=== PATIENT | female | born 1945 | race Caucasian/White ===

== ENCOUNTER 2022-01-12 11:41 | Emergency (ER) | payer MEDICARE, SELFPAY ==
[2022-01-12] VITALS (46 sets, daily range): BP systolic 115–152; BP diastolic 50–78; PULSE 80–108; RESP 10–24; TEMP 36.8–36.9; O2SAT 84–100
--- NOTE | 2022-01-12 11:45 | DI.RAD_ITS ---
Exam(s) XR CHEST 2V PA LATERAL EXAM: XR CHEST 2V PA LATERAL CLINICAL HISTORY: sob, r/o acute disease. TECHNIQUE: 2D digital imaging was performed. COMPARISON: No exams were available for comparison FINDINGS: 2 views: Heart size is normal. The mediastinum is not widened. Left lung is clear. However, there is infiltrate in the mid right lung and there is a moderate size right pleural effusion. No obvious adjacent rib destruction. No pneumothorax IMPRESSION: Moderate size right pleural effusion. Also right lung infiltrate. Close follow-up to rule out neopl asm recommended. DATA REPOSITORY: RADIATION DOSE DELIVERED:
--- NOTE | 2022-01-12 11:49 | ED.GENADUL_ITS ---
Discharge Plan Disposition Patient Disposition: HOME Condition: Improving Discharge Details Clinical Impression: Pleural effusion on right, Pneumonia, History of lung cancer Primary Care Provider: Unknown,Unknown ED Provider: Tomasa Ortega Home Meds and New Rx's Prescriptions: New amoxicillin-pot clavulanate 875-125 mg tablet 1 tab PO BID 7 Days Qty: 14 0RF doxycycline hyclate 100 mg tablet 100 mg PO BID 7 Days Qty: 14 0RF prednisone 20 mg tablet See Rx Instructions .ROUTE .COMPLEX Qty: 12 0RF Rx Instructions: Take 3 tabs daily for 2 days, then 2 tabs daily for 2 days, then 1 tab daily for 2 days Continued venlafaxine 37.5 mg capsule,extended release 24hr 37.5 mg PO DAILY Qty: 90 4RF azithromycin 250 mg tablet 250 mg PO .three times a week 0RF fluticasone furoate-vilanterol 100-25 mcg/dose blister with device 1 inh IH DAILY 0RF guaifenesin 600 mg tablet extended release 12hr 1,200 mg PO BID 0RF Centrum Silver Women 8 mg iron-400 mcg-300 mcg tablet 1 tab PO DAILY 0RF acetaminophen 500 mg tablet 500 mg PO .once daily PRN0RF ipratropium-albuterol 0.5 mg-3 mg(2.5 mg base)/3 mL solution for nebulization 3 ml IH Q6H PRN0RF duloxetine 30 mg capsule,delayed release(DR/EC) 30 mg PO BID 0RF pregabalin 200 mg capsule 400 mg PO DAILY 0RF levetiracetam 500 mg tablet 250 mg PO BID 0RF albuterol sulfate 90 mcg/actuation aerosol powdr breath activated 2 inh IH Q4H PRN (Reason: wheezing) 0RF Rx Instructions: use with spacer cbd cream 850 mg topical 0RF memantine 10 mg tablet 10 mg PO DAILY 0RF Breo Ellipta 100-25 mcg/dose blister with device INHALATION 0RF Discharge Instructions Instructions: Pleural Effusion (ED), Pneumonia (ED) Additional Instructions: Your work-up today showed evidence of a right-sided pleural effusion and pneumonia. You are being sent home with 2 antibiotics to take as directed until finished for your pneumonia The general surgeon Dr. Hutson who performed your thoracentesis today would like to follow-up with you in her office in 10 days. It is recommended that you avoid any strenuous activity or heavy lifting for the next 24 hours. You can take Tylenol and apply ice to the affected area as needed and directed for pain. Call Dr. Mcdaniel's office tomorrow to schedule a follow-up appointment for reevaluation within the next week. Return immediately to the emergency department if you develop any worsening or new concerning symptoms such as fever, worsening shortness of breath, or redness, swelling or drainage at your chest wall site. Referrals: Jennifer Hutson DO [OSTEOPATHIC DOCTOR] - Discharge Data Discharge Date/Time-TO BE ENTERED AT DEPARTURE: 01/12/22 17:51 Discharge Physician: Tomasa Ortega Medical Decision Making 76-year-old female with a history of small cell lung CA treated with chemo and radiation in 2016, COPD, dementia, anxiety, chronic pain, hypertension, fibromyalgia who presents for shortness of breath with increasing oxygen requirements. Oxygen saturation 84% on arrival on 4L on arrival. Patient appears comfortable and nontoxic at bedside. She is speaking in full sentences. She has scattered wheezing and diminished breath sounds throughout. No lower extremity edema. Differential diagnosis includes acute on chronic COPD, bronchitis, pneumonia, COVID, flu, CHF. Will place an IV, obtain screening labs, chest x-ray, fluvid and given DuoNeb, steroids and reassess. Labs and imaging reviewed. White blood cell count normal at 8. Normal electrolytes. Troponin negative. BNP 929. Lactate 2.2. Fluvid negative. Chest x-ray notes a moderate sized pleural effusion and a right lung infiltrate. As patient has had productive sputum with increased oxygen requirements and no recent hospitalizations, will treat for community-acquired pneumonia. reports that she has been on prophylactic Zithromax 3 times weekly for the past year. We will give a dose of IV Rocephin and doxycycline. Case discussed and imaging reviewed with Dr. Hutson who will perform a bedside thoracentesis. Repeat portable x-ray noted significant improvement of pleural effusion post thoracentesis. Repeat lactate downtrending to 1.6. Patient feels comfortable going home. She has remained hemodynamically stable and oxygen saturation mid to high 90s on her baseline 3 L nasal cannula. Prescriptions for Augmentin and doxycycline sent electronically to her pharmacy. Dr. Hutson would like to follow-up with patient in 10 days in the office. Usual and customary return precautions given prior to discharge. Prescription for prednisone sent electronically to patient's [facility] pharmacy on 01/13/2022. Attempted to call patient on number listed at [phone] on 01/13/22 with only a busy signal. Patient placed on care management list to inform her or her PCP that a prescription for prednisone has been sent electronically to her pharmacy. Medical Records Medical records reviewed: Yes I reviewed the patient's medical records. Imaging Data Radiologic Study: Radiologist's impression: ?XR CHEST 2V PA ? LATERAL CLINICAL HISTORY: ? sob, r/o acute disease. ? TECHNIQUE:? 2D digital imaging was performed. COMPARISON:? No exams were available for comparison FINDINGS: 2 views: Heart size is normal.? The mediastinum is not widened. Left lung is clear.? However, there is infiltrate in the mid right lung and there is a moderate size right pleural effusion.? No obvious adjacent rib destruction.? No pneumothorax IMPRESSION: Moderate size right pleural effusion.? Also right lung infiltrate.? Close follow-up to rule out neoplasm recommended. Lab Data Lab results reviewed: Yes I reviewed the patient's lab results. Labs: 01/12/22 14:50 Blood Blood Culture - Preliminary NO GROWTH 24 HOURS 01/12/22 14:09 Blood Blood Culture - Preliminary NO GROWTH 24 HOURS 01/12/22 16:15 Pleural Body Fluid Culture - Pending 01/12/22 16:15 Pleural Gram Stain - Final 01/12/22 16:15 Pleural Anaerobic Culture - Pending Laboratory Tests Range/Units 01/12/22 01/12/22 01/12/22 12:00 12:15 12:15 WBC Cancelled RBC Cancelled Hgb Cancelled Hct Cancelled MCV Cancelled MCH Cancelled MCHC Cancelled RDW Cancelled Plt Count Cancelled MPV Cancelled Immature Gran % Cancelled Neutrophils % Cancelled Band Neutrophils % Cancelled Lymphocytes % Cancelled Atypical Lymphs % Cancelled Monocytes % Cancelled Eosinophils % Cancelled Basophils % Cancelled Metamyelocytes % Cancelled Myelocytes % Cancelled Promyelocytes % Cancelled Other Cells % Cancelled Nucleated RBC % Cancelled Absolute Neutrophils Cancelled Absolute Lymphocytes Cancelled Absolute Monocytes Cancelled Absolute Eosinophils Cancelled Absolute Basophils Cancelled RBC Morphology Cancelled Polychromasia Cancelled Hypochromasia Cancelled Poikilocytosis Cancelled Basophilic Stippling Cancelled Anisocytosis Cancelled Microcytosis Cancelled Macrocytosis Cancelled Spherocytes Cancelled Tear Drop Cells Cancelled Ovalocytes Cancelled Stomatocytes Cancelled [place] Bodies Cancelled Anna Cells/Echinocytes Cancelled Acanthocytes (Spur) Cancelled Schistocytes Cancelled VBG Lactate (0.6-1.4) mmol/L Sodium (136-145) mmol/L 140 Potassium (3.5-5.1) mmol/L 3.9 Chloride (98-107) mmol/L 101 Carbon Dioxide (21.0-32.0) mmol/L 31.8 Anion Gap (3-11) mmol/L 7.2 BUN (7-18) mg/dL 12 Creatinine (0.55-1.02) mg/dL 0.6 Estimated GFR/1.73 m2 (mL/min/1.73m2) >= 60.00 Glucose (74-106) mg/dL 134 H Calcium (8.5-10.1) mg/dL 9.6 Magnesium (1.8-2.5) mg/dL 2.2 Total Bilirubin (0.2-1.0) mg/dL 0.7 AST (15-37) U/L 35 ALT (14-59) U/L 28 Alkaline Phosphatase (46-116) U/L 110 Troponin I (<or=60) ng/L < 50 NT-Pro-B Natriuret Pep (<300) pg/mL Total Protein (6.4-8.2) g/dL 7.8 Albumin (3.4-5.0) g/dL 3.4 Fluid Source Fluid Color Fluid Clarity Fluid pH Fluid WBC (0) uL Fld Polynuclear WBCs % Fluid Mononuclear Cell Fluid Other Cells Fluid Albumin (See Note) g/dL COVID-19 Source Nasopharynx SARS-CoV-2 (PCR) (Negative) Negative Influenza Type A (PCR) (Negative) Negative Influenza Type B (PCR) (Negative) Negative RSV (PCR) (Negative) Negative Path Cons Comment Range/Units 01/12/22 01/12/22 01/12/22 12:15 13:35 14:09 WBC 8.91 RBC 4.54 Hgb 13.6 Hct 43.8 MCV 97 H MCH 30.0 MCHC 31.1 L RDW 11.8 Plt Count 175 MPV 11.3 H Immature Gran % 0.3 Neutrophils % 79.1 Band Neutrophils % Lymphocytes % 10.9 Atypical Lymphs % Monocytes % 8.3 Eosinophils % 1.0 Basophils % 0.4 Metamyelocytes % Myelocytes % Promyelocytes % Other Cells % Nucleated RBC % 0.0 Absolute Neutrophils 7.04 H Absolute Lymphocytes 0.97 L Absolute Monocytes 0.74 Absolute Eosinophils 0.09 Absolute Basophils 0.04 RBC Morphology Polychromasia Hypochromasia Poikilocytosis Basophilic Stippling Anisocytosis Microcytosis Macrocytosis Spherocytes Tear Drop Cells Ovalocytes Stomatocytes [place] Bodies Anna Cells/Echinocytes Acanthocytes (Spur) Schistocytes VBG Lactate (0.6-1.4) mmol/L 2.2 H* Sodium (136-145) mmol/L Potassium (3.5-5.1) mmol/L Chloride (98-107) mmol/L Carbon Dioxide (21.0-32.0) mmol/L Anion Gap (3-11) mmol/L BUN (7-18) mg/dL Creatinine (0.55-1.02) mg/dL Estimated GFR/1.73 m2 (mL/min/1.73m2) Glucose (74-106) mg/dL Calcium (8.5-10.1) mg/dL Magnesium (1.8-2.5) mg/dL Total Bilirubin (0.2-1.0) mg/dL AST (15-37) U/L ALT (14-59) U/L Alkaline Phosphatase (46-116) U/L Troponin I (<or=60) ng/L NT-Pro-B Natriuret Pep (<300) pg/mL 929 H Total Protein (6.4-8.2) g/dL Albumin (3.4-5.0) g/dL Fluid Source Fluid Color Fluid Clarity Fluid pH Fluid WBC (0) uL Fld Polynuclear WBCs % Fluid Mononuclear Cell Fluid Other Cells Fluid Albumin (See Note) g/dL COVID-19 Source SARS-CoV-2 (PCR) (Negative) Influenza Type A (PCR) (Negative) Influenza Type B (PCR) (Negative) RSV (PCR) (Negative) Path Cons Comment Range/Units 01/12/22 01/12/22 01/12/22 16:15 16:15 16:15 WBC RBC Hgb Hct MCV MCH MCHC RDW Plt Count MPV Immature Gran % Neutrophils % Band Neutrophils % Lymphocytes % Atypical Lymphs % Monocytes % Eosinophils % Basophils % Metamyelocytes % Myelocytes % Promyelocytes % Other Cells % Nucleated RBC % Absolute Neutrophils Absolute Lymphocytes Absolute Monocytes Absolute Eosinophils Absolute Basophils RBC Morphology Polychromasia Hypochromasia Poikilocytosis Basophilic Stippling Anisocytosis Microcytosis Macrocytosis Spherocytes Tear Drop Cells Ovalocytes Stomatocytes [place] Bodies Ovid Cells/Echinocytes Acanthocytes (Spur) Schistocytes VBG Lactate (0.6-1.4) mmol/L Sodium (136-145) mmol/L Potassium (3.5-5.1) mmol/L Chloride (98-107) mmol/L Carbon Dioxide (21.0-32.0) mmol/L Anion Gap (3-11) mmol/L BUN (7-18) mg/dL Creatinine (0.55-1.02) mg/dL Estimated GFR/1.73 m2 (mL/min/1.73m2) Glucose (74-106) mg/dL Calcium (8.5-10.1) mg/dL Magnesium (1.8-2.5) mg/dL Total Bilirubin (0.2-1.0) mg/dL AST (15-37) U/L ALT (14-59) U/L Alkaline Phosphatase (46-116) U/L Troponin I (<or=60) ng/L NT-Pro-B Natriuret Pep (<300) pg/mL Total Protein (6.4-8.2) g/dL Albumin (3.4-5.0) g/dL Fluid Source Pleural Pleural Fluid Color Yellow Fluid Clarity Fluid pH 7.0 Fluid WBC (0) uL 1482 Fld Polynuclear WBCs % Cancelled 20 Fluid Mononuclear Cell Cancelled 80 Fluid Other Cells Cancelled Fluid Albumin (See Note) g/dL COVID-19 Source SARS-CoV-2 (PCR) (Negative) Influenza Type A (PCR) (Negative) Influenza Type B (PCR) (Negative) RSV (PCR) (Negative) Path Cons Comment Cancelled SEE COMMENT Range/Units 01/12/22 01/12/22 16:15 16:49 WBC RBC Hgb Hct MCV MCH MCHC RDW Plt Count MPV Immature Gran % Neutrophils % Band Neutrophils % Lymphocytes % Atypical Lymphs % Monocytes % Eosinophils % Basophils % Metamyelocytes % Myelocytes % Promyelocytes % Other Cells % Nucleated RBC % Absolute Neutrophils Absolute Lymphocytes Absolute Monocytes Absolute Eosinophils Absolute Basophils RBC Morphology Polychromasia Hypochromasia Poikilocytosis Basophilic Stippling Anisocytosis Microcytosis Macrocytosis Spherocytes Tear Drop Cells Ovalocytes Stomatocytes [place] Bodies Anna Cells/Echinocytes Acanthocytes (Spur) Schistocytes VBG Lactate (0.6-1.4) mmol/L 1.6 H Sodium (136-145) mmol/L Potassium (3.5-5.1) mmol/L Chloride (98-107) mmol/L Carbon Dioxide (21.0-32.0) mmol/L Anion Gap (3-11) mmol/L BUN (7-18) mg/dL Creatinine (0.55-1.02) mg/dL Estimated GFR/1.73 m2 (mL/min/1.73m2) Glucose (74-106) mg/dL Calcium (8.5-10.1) mg/dL Magnesium (1.8-2.5) mg/dL Total Bilirubin (0.2-1.0) mg/dL AST (15-37) U/L ALT (14-59) U/L Alkaline Phosphatase (46-116) U/L Troponin I (<or=60) ng/L NT-Pro-B Natriuret Pep (<300) pg/mL Total Protein (6.4-8.2) g/dL Albumin (3.4-5.0) g/dL Fluid Source Fluid Color Fluid Clarity Fluid pH Fluid WBC (0) uL Fld Polynuclear WBCs % Fluid Mononuclear Cell Fluid Other Cells Fluid Albumin (See Note) g/dL 2.3 COVID-19 Source SARS-CoV-2 (PCR) (Negative) Influenza Type A (PCR) (Negative) Influenza Type B (PCR) (Negative) RSV (PCR) (Negative) Path Cons Comment HPI General Mode of arrival: ambulatory . Date/Time Provider Initiated Documentation: 01/12/22 11:42 . Limitations to Documentation: no limitations . Information obtained by: patient and family . HPI Narrative: Patient is a 76-year-old female with a history of COPD, anxiety, dementia, hypertension, fibromyalgia who presents for worsening shortness of breath, cough and increasing oxygen requirements over the last several days. states that patient has been on 3 L of nasal cannula oxygen for COPD for the past 4 years. He states her baseline oxygen saturation on 3 L is mid 90s. He states with exertion over the last few days, her oxygen has decreased to the 60s on her nasal cannula oxygen so he increased her oxygen to 4 L last night. He states she does have a chronic cough and shortness of breath but states the cough has been worse than usual and productive of yellow sputum. He does endorse that patient had a fall a couple weeks ago in which she hit her head but denies any chest injury at that time but is complaining of right-sided rib pain over the last couple days. states he thought her right-sided rib pain was secondary to her increase in cough. He states she has been eating slightly less than usual but denies any fever, vomiting, diarrhea or known exposure to coronavirus. She has received a total of 3 doses of the COVID-vaccine but has not yet received her second booster. states that he called Dr. Mcdaniel's office yesterday and they advised her to come to the ER for further evaluation including a chest x-ray. Related Data Home Medications Medication Instructions Recorded Confirmed acetaminophen 500 mg tablet 500 mg PO .once daily PRN tab 02/06/20 01/12/22 albuterol sulfate 90 mcg/actuation 2 inh IH Q4H PRN 02/06/20 01/12/22 breath activated powder inhaler azithromycin 250 mg tablet 250 mg PO .three times a week tab 02/06/20 01/12/22 duloxetine 30 mg capsule,delayed 30 mg PO BID 02/06/20 01/12/22 release fluticasone furoate 100 1 inh IH DAILY 02/06/20 12/02/21 mcg-vilanterol 25 mcg/dose inhalation powder guaifenesin 600 mg tablet, 1,200 mg PO BID tab 02/06/20 01/12/22 extended release 12 hr ipratropium 0.5 mg-albuterol 3 mg 3 ml IH Q6H PRN 02/06/20 01/12/22 (2.5 mg base)/3 mL nebulization soln levetiracetam 500 mg tablet 250 mg PO BID tab 02/06/20 01/12/22 multivit with 1 tab PO DAILY 02/06/20 01/12/22 qffelcds-cjub-PW-lutein 8 mg iron-400 mcg-300 mcg tablet (Centrum Silver Women) pregabalin 200 mg capsule 400 mg PO DAILY cap 02/06/20 01/12/22 cbd cream TOPICAL 08/06/20 12/02/21 venlafaxine 37.5 mg 37.5 mg PO DAILY #90 cap 04/01/21 01/12/22 capsule,extended release 24 hr memantine 10 mg tablet 10 mg PO DAILY tab 12/02/21 01/12/22 amoxicillin 875 mg-potassium 1 tab PO BID 7 Days #14 tab 01/12/22 clavulanate 125 mg tablet doxycycline hyclate 100 mg tablet 100 mg PO BID 7 Days #14 tab 01/12/22 fluticasone furoate 100 INHALATION 01/12/22 01/12/22 mcg-vilanterol 25 mcg/dose inhalation powder (Breo Ellipta) prednisone 20 mg tablet See Rx Instructions .ROUTE 01/13/22 .COMPLEX #12 tab Previous Rx's Medication Instructions Recorded venlafaxine 37.5 mg 37.5 mg PO DAILY #90 cap 04/01/21 capsule,extended release 24 hr amoxicillin 875 mg-potassium 1 tab PO BID 7 Days #14 tab 01/12/22 clavulanate 125 mg tablet doxycycline hyclate 100 mg tablet 100 mg PO BID 7 Days #14 tab 01/12/22 prednisone 20 mg tablet See Rx Instructions .ROUTE 01/13/22 .COMPLEX #12 tab Allergies Allergy/AdvReac Type Severity Reaction Status Date / Time oxcarbazepine AdvReac wandering Verified 01/12/22 13:15 [From Oxtellar XR] General Stated Complaint: SOB ALYSSA: 3 Review of Systems All systems reviewed & are unremarkable except as noted in HPI and below Constitutional Constitutional: Reports as per HPI, Denies chills, Denies excessive sweating, Denies fatigue and Denies fever(s) Eyes Eyes: Denies blurry vision ENT Ears, Nose, Mouth, and Throat: Denies dizziness, Denies sore throat and Denies throat swelling Cardiovascular Cardiovascular: Reports chest pain and Reports dyspnea Respiratory Respiratory: Reports cough and Reports dyspnea Gastrointestinal Gastrointestinal: Denies abdominal pain, Denies diarrhea and Denies vomiting Genitourinary Genitourinary: Denies hematuria and Denies dysuria Musculoskeletal Musculoskeletal: Denies back pain and Denies numbness Integumentary/Breasts Skin/Breast: Denies lesions and Denies rash Neurologic Neurologic: Denies behavioral changes, Denies confusion, Denies dizziness, Denies localized weakness and Denies numbness Psychiatric Psychiatric: Denies behavioral changes, Denies confusion and Denies depression Endocrine Endocrine: Denies excessive sweating and Denies fatigue Hematologic/Lymphatic Hematologic/Lymphatic: Denies easy bruising and Denies lymphadenopathy Allergic/Immunologic Allergic/Immunologic: Denies throat swelling PFSH All Active Problems (Updated 01/12/22 @ 17:22 by Tomasa Ortega DO) Pleural effusion on right (Acute) Pneumonia (Acute) History of lung cancer (Acute) Pleural effusion, right (Acute) Pneumonia (Acute) Shortness of breath (Acute) Dementia (Chronic) AD vs FTLD Physician orders for life-sustaining treatment (POLST) form indicates patient wish for [id number]-[id number] status (Acute) Palliative care patient (Acute) Dobbertin Chronic pain (Chronic) Hyperlipidemia (Acute) Right hemiparesis (Acute) Anxiety (Chronic) COPD (chronic obstructive pulmonary disease) (Chronic) Small cell lung cancer (Acute) Continuous tobacco abuse (Acute) Dementia associated with other underlying disease without behavioral disturbance (Acute) Seizure disorder, secondary (Acute) focal motor Depression (Chronic) Insomnia (Acute) Gastroesophageal reflux (Chronic) Hypertension (Chronic) Fibromyalgia (Acute) Pulmonary emphysema (Acute) Chronic respiratory insufficiency (Acute) Sensory peripheral neuropathy (Acute) Small cell carcinoma of right lung (Acute) Medical History (Updated 01/12/22 @ 17:22 by Tomasa Ortega DO) Intracranial glioma Polio Surgical History H/O section H/O colonoscopy H/O tubal ligation History of bronchoscopy History of tonsillectomy Family History (Updated 02/06/20 @ 07:47 by Pattie Lake RN) Mother , age 84 Stroke Hypertension Osteoporosis Rheumatoid arthritis Father , age 94 Cancer colorectal cancer Hypertension Son No problems noted. Daughter No problems noted. Social History (Updated 02/06/20 @ 07:35 by Pattie Lake RN) Smoking/Tobacco Use Status: Current every day Tobacco Type: cigarettes Smoking packs per day: 0.5 Smoking cigarettes per day: 10.0 Smoking risk assessment performed?: Yes Alcohol Intake: current Alcohol Intake frequency: 0-2 drinks per day Household members: spouse Housing: house Number of Children: 2 number of grandchildren: 5 current occupation: retired from [employer] Pets and animals: No What is your relationship status?: Panel score (0-1 are the most socially isolated patients): 1 What type of physical activity do you participate in: walking Do you feel safe at home: Yes Do you feel safe in your relationship?: Yes Additional Social history: Spends [place] in [place]. [place] PCP Dr. Gomes of [facility]. *[place] based medical team: PCP, Pulm, Onc & Neuro (had f/u with all providers during winter). Lives with Phuc ( in 1995). Son in [place]. Daughter in [place]; 20 miles away. Hobbies: sewing, quilting, watercolor, oil color Exam Const General: cooperative and no acute distress Orientation: alert and awake HENMT Head: normal to inspection Ears: hearing grossly normal bilaterally, external ears normal and TM's normal bilaterally General nose exam: external nose normal Face and sinus: normal facial exam Mouth: oral mucosae normal Teeth and gingiva: dentition normal Throat: posterior oropharynx normal Eyes General: appearance normal, both eyes and all related structures Eyelids: eyelids normal Pupils: PERRL EOM: EOM intact bilaterally Neck Neck: normal visual inspection Lymphatic: no lymphadenopathy noted Chest Chest: normal inspection of the chest Resp Effort & Inspection: normal respiratory effort and able to speak in complete sentences Auscultation: rhonchi upper bilaterally and lower bilaterally and wheezes expiratory wheezes and inspiratory wheezes Cardio Rate: regular rate and tachycardic Rhythm: regular rhythm GI Inspection: normal to inspection Palpation: soft, not firm, no guarding, no hepatosplenomegaly, no masses and nontender Auscultation: normal bowel sounds Back/Spine/Pelvis Back: no CVA tenderness Skin General skin exam: no rashes or lesions noted Neuro General: patient alert and patient awake Cognition: normal cognition Speech: speech normal Gait: normal gait Motor: muscle tone normal throughout Sensory Exam: no sensory deficits noted Extrem General: normal to inspection, full ROM and capillary refill normal Psych Appearance: grossly normal Mental Status: mental status grossly normal Speech and Movement: speech and movement normal Affect: normal affect Thought Process: normal
--- OUTSIDE RECORDS SUMMARY | 2022-01-12 12:09 | XMS_ITS ---
:1945 Author Name Migration Care Team Providers Name Role Phone Migration Unavailable Unavailable PROBLEMS Unknown Problems ALLERGIES No Information ENCOUNTERS Encounter Location Date Diagnosis [facility] [address] [place], [place] Nov, [id number] [facility] [address] [place], [place] Nov, [address] [facility] [address] [place], [place] Nov, [address] [facility] [address] [place], [place] Aug, [id number] IMMUNIZATIONS No Known Immunizations SOCIAL HISTORY Never Assessed REASON FOR REFERRAL FUNCTIONAL STATUS PLAN OF CARE VITAL SIGNS MEDICATIONS Unknown Medications PROCEDURES No Known procedures RESULTS No Results REASON FOR VISIT Skin Check, MOHS ON LEFT MORMON, focused visit, Melanoma Check, MOHS- Lt episcopalian nod bcc, FU( pt toldneeds MOHS SX) Insurance Providers [facility] Member Patient Patient Patient Patient Patient Subscriber Subscriber Subscriber Group Insurance Plan Plan Plan Plan ID Relationship Address Phone Name Date of ID Name Date of No Type Insurance Insurance Insurance Coverage to Subscriber Address Phone Name Dates AARP [phone] AARP self JACQUES [id number] Medicare [id number] Medicare [place] Supplement [facility] Supplement [id number] MEDICARE [phone] MEDICARE self JACQUES [id number] [facility] [address] [facility] [id number]
[2022-01-12 12:49] LABS: ALT 28 U/L (14-59); AST 35 U/L (15-37); Albumin 3.4 g/dL (3.4-5.0); Alkaline Phosphatase 110 U/L (46-116); Anion Gap 7.2 mmol/L (3-11); BUN 12 mg/dL (7-18); Bilirubin, Total 0.7 mg/dL (0.2-1.0); CO2 31.8 mmol/L (21.0-32.0); CREATININE 0.6 mg/dL (0.55-1.02); Calcium 9.6 mg/dL (8.5-10.1); Chloride 101 mmol/L (98-107); Glucose 134 mg/dL (74-106); Magnesium 2.2 mg/dL (1.8-2.5); Potassium 3.9 mmol/L (3.5-5.1); Sodium 140 mmol/L (136-145); Total Protein 7.8 g/dL (6.4-8.2); Troponin I < 50 ng/L (<or=60)
[2022-01-12] MEDS: Albuterol/Ipratropium 3 ML UPD VIAL UPD (12:59)
[2022-01-12 13:05] LABS: COVID-19 PCR Negative (Negative); Influenza A PCR Negative (Negative); Influenza B PCR Negative (Negative); RSV PCR Negative (Negative)
[2022-01-12 13:06] LABS: Source Nasopharynx
[2022-01-12 13:08] LABS: NT-proBNP 929 pg/mL (<300)
[2022-01-12] MEDS: predniSONE 20 MG TAB 60 MG PO (13:26)
--- NOTE | 2022-01-12 13:29 | NUR.NOTE ---
Addendum entered by Ana Morelos RN 01/12/22 16:05: 1605. Surgeon in room for procedure. Addendum entered by Ana Morelos RN 01/12/22 14:20: 1420. 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 Original Note: Nursing Note:Patient moved to room 8 placed on woodworking machine setter, patient is on 3L NC at this time. at bedside.
[2022-01-12 13:40] LABS: Abs Immature Grans 0.03 10^3/uL (0.0-0.06); Absolute Basophil Count 0.04 10^3/uL (0.0-0.2); Absolute Eosinophil Count 0.09 10^3/uL (0.0-0.7); Absolute Lymphocyte Count 0.97 10^3/uL (1.2-3.4); Absolute Monocyte Count 0.74 10^3/uL (0.1-0.8); Absolute Neutrophil Count 7.04 10^3/uL (1.2-6.7); Basophils % 0.4; HCT 43.8 % (36.0-46.0); HGB 13.6 g/dL (11.2-15.7); Immature Grans % 0.3; Lymphocytes % 10.9; MCHC 31.1 % (32.0-36.0); MCV 97 fL (80-95); MPV 11.3 fL (8.0-11.0); Monocytes % 8.3; Neutrophils % 79.1; Platelet Count 175 10^3/uL (130-400); RBC 4.54 10^6/uL (3.93-5.22); RDW 11.8 % (11.7-14.6); RDW-SD 42.1 fL; WBC 8.91 10^3/uL (4.4-10.8)
--- NOTE | 2022-01-12 14:13 | W.SURGCON ---
Documented by User: Jennifer Hutson DO 01/12/22 23:56 Date of service: 01/12/22 Time of Service: 14:13 Assessment and Plan Assessment and plan (1) Shortness of breath: Status: Acute Assessment and plan: - Patient is on 3 L of oxygen at home normally. (2) Physician orders for life-sustaining treatment (POLST) form indicates patient wish for yr-ufq-[id number] status: Status: Acute (3) Palliative care patient: Status: Acute Assessment and plan: - Patient also has a history of small cell lung cancer that was treated with chemo and radiation only (4) COPD (chronic obstructive pulmonary disease): Status: Chronic (5) Small cell lung cancer: Status: Acute (6) Seizure disorder, secondary: Status: Acute (7) Intracranial glioma: Assessment and plan: This is what is pressing on her brain and causing her to periods personality changes and memory loss (8) Pulmonary emphysema: Status: Acute (9) Gastroesophageal reflux: Status: Chronic (10) Small cell carcinoma of right lung: Status: Acute (11) Pneumonia: Status: Acute (12) Pleural effusion, right: Status: Acute Assessment and plan: Fluid will be sent for cytology cell count and differential in the usual testing to help determine if this is malignant or infection. Risks of performing the paracentesis include bleeding infection scarring recurrence and pneumothorax. Her does side and give her consent as she is no longer day. Patient is seen and examined and agree with above. I did personally review her chest x-ray. PFSH All Active Problems (Updated 01/12/22 @ 17:22 by Tomasa Ortega DO) Pleural effusion on right (Acute) Pneumonia (Acute) History of lung cancer (Acute) Pleural effusion, right (Acute) Pneumonia (Acute) Shortness of breath (Acute) Dementia (Chronic) AD vs FTLD Physician orders for life-sustaining treatment (POLST) form indicates patient wish for qt-apr-bqnyoiydmsp status (Acute) Palliative care patient (Acute) [place] Chronic pain (Chronic) Hyperlipidemia (Acute) Right hemiparesis (Acute) Anxiety (Chronic) COPD (chronic obstructive pulmonary disease) (Chronic) Small cell lung cancer (Acute) Continuous tobacco abuse (Acute) Dementia associated with other underlying disease without behavioral disturbance (Acute) Seizure disorder, secondary (Acute) focal motor Depression (Chronic) Insomnia (Acute) Gastroesophageal reflux (Chronic) Hypertension (Chronic) Fibromyalgia (Acute) Pulmonary emphysema (Acute) Chronic respiratory insufficiency (Acute) Sensory peripheral neuropathy (Acute) Small cell carcinoma of right lung (Acute) Medical History (Updated 01/12/22 @ 17:22 by Tomasa Ortega DO) Intracranial glioma Polio Surgical History H/O section H/O colonoscopy H/O tubal ligation History of bronchoscopy History of tonsillectomy Family History (Updated 02/06/20 @ 07:47 by Pattie Lake RN) Mother , age 84 Stroke Hypertension Osteoporosis Rheumatoid arthritis Father , age 94 Cancer colorectal cancer Hypertension Son No problems noted. Daughter No problems noted. Social History (Updated 02/06/20 @ 07:35 by Pattie Lake RN) Smoking/Tobacco Use Status: Current every day Tobacco Type: cigarettes Smoking packs per day: 0.5 Smoking cigarettes per day: 10.0 Smoking risk assessment performed?: Yes Alcohol Intake: current Alcohol Intake frequency: 0-2 drinks per day Household members: spouse Housing: house Number of Children: 2 number of grandchildren: 5 current occupation: retired from [employer] Pets and animals: No What is your relationship status?: Panel score (0-1 are the most socially isolated patients): 1 What type of physical activity do you participate in: walking Do you feel safe at home: Yes Do you feel safe in your relationship?: Yes Additional Social history: Spends Sep thrdecember in [place]. [place] based PCP Dr. Gomes of [facility]. *[place] based medical team: PCP, Pulm, Onc & Neuro (had f/u with all providers during winter). Lives with Phuc ( in 1995). Son in [place]. Daughter in [place]; 20 miles away. Hobbies: sewing, quilting, watercolor, oil color Results Last Vital Signs Temp 36.9 C 01/12/22 12:03 Pulse 97 H 01/12/22 13:25 Resp 23 01/12/22 13:28 BP 140/70 01/12/22 13:25 Pulse Ox 96 01/12/22 13:28 Labs Result diagrams: 01/12/22 13:35 01/12/22 12:15 Labs: Laboratory Results - last 24 hr 01/12/22 01/12/22 01/12/22 12:00 12:15 12:15 WBC Cancelled RBC Cancelled Hgb Cancelled Hct Cancelled MCV Cancelled MCH Cancelled MCHC Cancelled RDW Cancelled Plt Count Cancelled MPV Cancelled Immature Gran % Cancelled Neutrophils % Cancelled Band Neutrophils % Cancelled Lymphocytes % Cancelled Atypical Lymphs % Cancelled Monocytes % Cancelled Eosinophils % Cancelled Basophils % Cancelled Metamyelocytes % Cancelled Myelocytes % Cancelled Promyelocytes % Cancelled Other Cells % Cancelled Nucleated RBC % Cancelled Absolute Neutrophils Cancelled Absolute Lymphocytes Cancelled Absolute Monocytes Cancelled Absolute Eosinophils Cancelled Absolute Basophils Cancelled RBC Morphology Cancelled Polychromasia Cancelled Hypochromasia Cancelled Poikilocytosis Cancelled Basophilic Stippling Cancelled Anisocytosis Cancelled Microcytosis Cancelled Macrocytosis Cancelled Spherocytes Cancelled Tear Drop Cells Cancelled Ovalocytes Cancelled Stomatocytes Cancelled [place]-Springs Bodies Cancelled [place] Cells/Echinocytes Cancelled Acanthocytes (Spur) Cancelled Schistocytes Cancelled Sodium 140 Potassium 3.9 Chloride 101 Carbon Dioxide 31.8 Anion Gap 7.2 BUN 12 Creatinine 0.6 Estimated GFR/1.73 m2 >= 60.00 Glucose 134 H Calcium 9.6 Magnesium 2.2 Total Bilirubin 0.7 AST 35 ALT 28 Alkaline Phosphatase 110 Troponin I < 50 NT-Pro-B Natriuret Pep Total Protein 7.8 Albumin 3.4 COVID-19 Source Nasopharynx SARS-CoV-2 (PCR) Negative Influenza Type A (PCR) Negative Influenza Type B (PCR) Negative RSV (PCR) Negative 01/12/22 01/12/22 12:15 13:35 WBC 8.91 RBC 4.54 Hgb 13.6 Hct 43.8 MCV 97 H MCH 30.0 MCHC 31.1 L RDW 11.8 Plt Count 175 MPV 11.3 H Immature Gran % 0.3 Neutrophils % 79.1 Band Neutrophils % Lymphocytes % 10.9 Atypical Lymphs % Monocytes % 8.3 Eosinophils % 1.0 Basophils % 0.4 Metamyelocytes % Myelocytes % Promyelocytes % Other Cells % Nucleated RBC % 0.0 Absolute Neutrophils 7.04 H Absolute Lymphocytes 0.97 L Absolute Monocytes 0.74 Absolute Eosinophils 0.09 Absolute Basophils 0.04 RBC Morphology Polychromasia Hypochromasia Poikilocytosis Basophilic Stippling Anisocytosis Microcytosis Macrocytosis Spherocytes Tear Drop Cells Ovalocytes Stomatocytes [place]chran-Springs Bodies Anna Cells/Echinocytes Acanthocytes (Spur) Schistocytes Sodium Potassium Chloride Carbon Dioxide Anion Gap BUN Creatinine Estimated GFR/1.73 m2 Glucose Calcium Magnesium Total Bilirubin AST ALT Alkaline Phosphatase Troponin I NT-Pro-B Natriuret Pep 929 H Total Protein Albumin COVID-19 Source SARS-CoV-2 (PCR) Influenza Type A (PCR) Influenza Type B (PCR) RSV (PCR) Documented by User: ROCKY Nguyen 01/12/22 16:31 Assessment and Plan Assessment and plan (1) Shortness of breath: Status: Acute (2) Physician orders for life-sustaining treatment (POLST) form indicates patient wish for [id number]-[id number] status: Status: Acute (3) Palliative care patient: Status: Acute (4) COPD (chronic obstructive pulmonary disease): Status: Chronic (5) Small cell lung cancer: Status: Acute (6) Seizure disorder, secondary: Status: Acute (7) Intracranial glioma: (8) Pulmonary emphysema: Status: Acute (9) Gastroesophageal reflux: Status: Chronic (10) Small cell carcinoma of right lung: Status: Acute (11) Pneumonia: Status: Acute (12) Pleural effusion, right: Status: Acute History of Present Illness History of Present Illness Chief Complaint: Right Pleural Effusion Narrative: 76 y/o female with history of dementia, COPD, anxiety, small cell lung cancer, GERD, HTN and Insomnia presented to the ER with right sided rib pain and SOB per her husbands report. PFSH All Active Problems (Updated 01/12/22 @ 17:22 by Tomasa Ortega DO) Pleural effusion on right (Acute) Pneumonia (Acute) History of lung cancer (Acute) Pleural effusion, right (Acute) Pneumonia (Acute) Shortness of breath (Acute) Dementia (Chronic) AD vs FTLD Physician orders for life-sustaining treatment (POLST) form indicates patient wish for zh-moo-vouvhgplqol status (Acute) Palliative care patient (Acute) [place] Chronic pain (Chronic) Hyperlipidemia (Acute) Right hemiparesis (Acute) Anxiety (Chronic) COPD (chronic obstructive pulmonary disease) (Chronic) Small cell lung cancer (Acute) Continuous tobacco abuse (Acute) Dementia associated with other underlying disease without behavioral disturbance (Acute) Seizure disorder, secondary (Acute) focal motor Depression (Chronic) Insomnia (Acute) Gastroesophageal reflux (Chronic) Hypertension (Chronic) Fibromyalgia (Acute) Pulmonary emphysema (Acute) Chronic respiratory insufficiency (Acute) Sensory peripheral neuropathy (Acute) Small cell carcinoma of right lung (Acute) Medical History (Updated 01/12/22 @ 17:22 by Tomasa Ortega DO) Intracranial glioma Polio Surgical History H/O section H/O colonoscopy H/O tubal ligation History of bronchoscopy History of tonsillectomy Family History (Updated 02/06/20 @ 07:47 by Pattie Lake RN) Mother , age 84 Stroke Hypertension Osteoporosis Rheumatoid arthritis Father , age 94 Cancer colorectal cancer Hypertension Son No problems noted. Daughter No problems noted. Social History (Updated 02/06/20 @ 07:35 by Pattie Lake RN) Smoking/Tobacco Use Status: Current every day Tobacco Type: cigarettes Smoking packs per day: 0.5 Smoking cigarettes per day: 10.0 Smoking risk assessment performed?: Yes Alcohol Intake: current Alcohol Intake frequency: 0-2 drinks per day Household members: spouse Housing: house Number of Children: 2 number of grandchildren: 5 current occupation: retired from [employer] Pets and animals: No What is your relationship status?: Panel score (0-1 are the most socially isolated patients): 1 What type of physical activity do you participate in: walking Do you feel safe at home: Yes Do you feel safe in your relationship?: Yes Additional Social history: Spends Sep thru December in [place]. [place] based PCP Dr. Gomes of [facility]. *[place] based medical team: PCP, Pulm, Onc & Neuro (had f/u with all providers during winter). Lives with Phuc ( in 1995). Son in [place]. Daughter in [place]; 20 miles away. Hobbies: sewing, quilting, watercolor, oil color Exam Const General: cooperative, healthy appearing and in distress mild Orientation: alert and awake Resp Effort & Inspection: normal respiratory effort Auscultation: crackles and diminished lung sounds on the right GI Inspection: normal to inspection Palpation: soft, no guarding and nontender Results Labs Result diagrams: 01/12/22 13:35 01/12/22 12:15 Procedures Operative Note DATE OF PROCEDURE: 01/12/22 PRE-OP DIAGNOSIS: Right Pleural Effusion POST-OP DIAGNOSIS: same PROCEDURE: The patient is placed in the seated position.? Ultrasound is used to localize the pocket on the right chest.? The area is marked and then prepped and draped in the usual sterile fashion using a ChloraPrep scrub solution. 6 cc's? of 1% Lidocaine is used to anesthetize the T10 interspace. ? The small sherry is made with a #11 blade.? The needle and catheter is then inserted over the top of the rib, aspirating as it is inserted.? The needle is then removed.? The catheter is then hooked up to the Vacutainer system and 700 cc's of avi/straw-colored fluid is evacuated.? The catheter is removed; pressure is held. Sterile compression dressing is applied. ?Portable chest x-ray shows no pneumothorax. SURGEON: Jennifre Hutson METAL FURNITURE ASSEMBLER: Jeny Crystal ANESTHESIA TYPE: Local By Surgeon Refer to Anesthesia Record PATHOLOGY: other COMPLICATIONS: None Patient was transported to: no change Patient's condition: stable
[2022-01-12 14:21] LABS: Lactate 2.2 mmol/L (0.6-1.4)
[2022-01-12] MEDS: cefTRIAXone 1 GM/50 ML BAG IVPB (14:55)
[2022-01-12] MEDS: Normal Saline 500 ML IV (14:56)
[2022-01-12] MEDS: DOXYCYCLINE 100 MG in Normal Saline 100 ML IVPB (15:30)
--- NOTE | 2022-01-12 16:15 | DI.RAD_ITS ---
Exam(s) XR PORTABLE CHEST AP EXAM: XR PORTABLE CHEST AP CLINICAL HISTORY: s/p thoracentesis, reassess. TECHNIQUE: 2D digital imaging was performed. COMPARISON: CR XR CHEST 2V PA LATERAL from 01/12/2022 FINDINGS: Single AP portable view. Heart size is upper normal. The mediastinum is not widened. The size of the right pleural effusion has decreased. This may be related to interval right thoracen tesis. There is no obvious pneumothorax. Some infiltrate in the mid right lung is unchanged. Left lung remains clear. IMPRESSION: Decrease in size of the right pleural effusion. No pneumothorax. DATA REPOSITORY: RADIATION DOSE DELIVERED: All CT scans at this facility use at least one of these dose optimization techniques: automated exposure control; mA and/or kV adjustment per patient size (includes targeted e xams where dose is matched to clinical indication); or iterative reconstruction.
--- NOTE | 2022-01-12 16:15 | PAPNONF_PTH ---
PATIENT: Bhavya Carter LOC: U#:[id number] AGE/SX: 76/F ROOM: RE01/12/[address]: Tomasa Ortega : 1945 BED: DIS: 01/12/2022 SPEC #: [id number] RECD: 01/12/22 17:51 STATUS: OSMANY REBrian #: [id number] SHI: 01/12/22 16:[address]: Tomasa Ortega DEPT: [facility] Cytology RECD BY: Tamia Barrera ENTERED: 01/12/22 17:51 SP TYPE: DREA MENDOZA DR: Unknown,Unknown Tissues: 1 - BODY FLUID CYTO(NOT S/U/N/EM)[facility] Procedures: BODY FLUID CYTO(NOT SPU/UR/NIP/ENDOM)[facility] CYTOLOGY CELL BLOCK Comments: [id number] (TOTAL VOLUME = 400 ml, SENT FRESH)
[2022-01-12 16:59] LABS: Lactate 1.6 mmol/L (0.6-1.4)
[2022-01-12 17:15] LABS: Nucleated Cells 1482 uL (0); Source Pleural
[2022-01-12 17:24] LABS: Source: Pleural
[2022-01-12] MEDS: Amox. 875/Clav. 125, 2 TABS/BTL 1 TAB PO (17:48)
[2022-01-12] MEDS: Doxycycline Hyclate 100 MG, 2 CAPS/BTL PO (17:48)
[2022-01-12 17:49] LABS: Mononuclear Cells 80 %; Polynuclear Cells 20 %
[2022-01-13 17:23] LABS: Albumin, Body FLuid 2.3 g/dL (See Note)
--- NOTE | 2022-01-14 13:07 | PDOC.ERCMACT ---
- If Service Date Differs Date of service: 01/14/22 Time of Service: 13:07 Care Management Activity Note Bhavya is seen in the ED for pneumonia and pleural effusion on the right. At the request of ED provider, CM contacts patient's home and speaks with her . CM advises him that a prescription for prednisone has been sent electronically to Bhavya's pharmacy.
[2022-01-19 16:54] LABS: Glucose, Fluid 114
== END 2022-01-12 17:51 | disposition home or self-care (01) ==
PROVIDERS: Surgery; Emergency Provider Physician Assistant
DX: J18.9 Pneumonia, unspecified organism (principal); J91.8 Pleural effusion in other conditions classified elsewhere; J44.9 Chronic obstructive pulmonary disease, unspecified; F17.210 Nicotine dependence, cigarettes, uncomplicated; R06.02 Shortness of breath; Z85.118 Personal history of other malignant neoplasm of bronchus and lung
CPT/HCPCS: 32554; 36415; 80053; 82042; 87040; 87637; 89051; 96361; 96365; 96367; 99284; 71045; 71046; 81373; 83605; 83735; 83880; 83986; 84484; 85025; 87070; 87075; 87205; 88104; 88305; J0696; J7512; J7620

== ENCOUNTER 2022-01-17 09:05 | Emergency (ER) | payer MEDICARE, SELFPAY ==
[2022-01-17] VITALS (23 sets, daily range): BP systolic 128–164; BP diastolic 65–98; PULSE 79–102; RESP 15–24; TEMP 36.6–36.8; O2SAT 91–100
--- NOTE | 2022-01-17 09:13 | ED.GENADUL_ITS ---
Discharge Plan Disposition Patient Disposition: HOME Condition: Improving Discharge Details Clinical Impression: Acute chest wall pain, Pleural effusion on right, Lung cancer, Metastasis to adrenal gland, Liver metastasis Primary Care Provider: Shun Lucas ED Provider: Tomasa Ortega Home Meds and New Rx's Prescriptions: New oxycodone 5 mg tablet 5 mg PO Q6H PRN (Reason: pain) Qty: 14 0RF benzonatate 100 mg capsule 100 mg PO TID PRN (Reason: cough) Qty: 10 0RF Continued venlafaxine 37.5 mg capsule,extended release 24hr 37.5 mg PO DAILY Qty: 90 4RF fluticasone furoate-vilanterol 100-25 mcg/dose blister with device 1 inh IH DAILY 0RF guaifenesin 600 mg tablet extended release 12hr 600 mg PO BID 0RF Centrum Silver Women 8 mg iron-400 mcg-300 mcg tablet 1 tab PO DAILY 0RF acetaminophen 500 mg tablet 500 mg PO .once daily PRN0RF ipratropium-albuterol 0.5 mg-3 mg(2.5 mg base)/3 mL solution for nebulization 3 ml IH Q6H PRN0RF duloxetine 30 mg capsule,delayed release(DR/EC) 30 mg PO BID 0RF pregabalin 200 mg capsule 400 mg PO DAILY 0RF levetiracetam 500 mg tablet 250 mg PO BID 0RF albuterol sulfate 90 mcg/actuation aerosol powdr breath activated 2 inh IH Q4H PRN (Reason: wheezing) 0RF Rx Instructions: use with spacer cbd cream 850 mg topical 0RF memantine 10 mg tablet 10 mg PO DAILY 0RF Breo Ellipta 100-25 mcg/dose blister with device INHALATION 0RF amoxicillin-pot clavulanate 875-125 mg tablet 1 tab PO BID 7 Days Qty: 14 0RF doxycycline hyclate 100 mg tablet 100 mg PO BID 7 Days Qty: 14 0RF prednisone 20 mg tablet See Rx Instructions .ROUTE .COMPLEX Qty: 12 0RF Rx Instructions: Take 3 tabs daily for 2 days, then 2 tabs daily for 2 days, then 1 tab daily for 2 days Discharge Instructions Instructions: Chest Wall Pain (ED) Additional Instructions: It is suspected that your pain today is secondary to a muscle strain in your chest wall. This can be secondary to coughing. A prescription for the cough medication Tessalon Perles and the pain medication Oxycodone have been sent electronically to your pharmacy. Continue all of your regular medications as directed. Continue your antibiotics and steroids that were recently started as directed until finished. It was also noted on imaging today that you are developing a reaccumulation of fluid within your right lung. You have been placed on general surgery's list for follow-up within the week as you may need this fluid to be drained again soon. Call your primary care doctor's office tomorrow to schedule a follow-up appointment for reevaluation and for referral for PET scan for further evaluat ion of possible recurrence of your lung cancer with potential spread to your adrenal gland and liver. Call your oncologist at [facility] to discuss these findings today and for any further recommendations regarding your possible cancer recurrence and any treatment plans going forward. Return immediately to the emergency department if you develop any worsening or new concerning symptoms such as worsening shortness of breath, worsening chest pain or any other concerns. Discharge Data Discharge Date/Time-TO BE ENTERED AT DEPARTURE: 01/17/22 14:19 Discharge Physician: Tomasa Ortega Medical Decision Making [id number] -- 76-year-old female with a history of small cell lung cancer treated in 2016, COPD chronically on 3 L nasal cannula oxygen, dementia, fibromyalgia, hypertension, hyperlipidemia who was seen here 5 days ago for increased oxygen requirements from her normal 3 L to 4 L nasal cannula oxygen and was found to have right-sided pleural effusion which was drained with thoracentesis with Dr. Hutson in the ED and she was given antibiotics for pneumonia and steroids for possible COPD exacerbation who presents for right-sided rib pain for the past 2 days. Patient appears comfortable and nontoxic. She is speaking in full sentences. Her oxygen saturation is 98% on her baseline 3 L. She has scattered wheezing but has good breath sounds throughout. She is tender to palpation of the anterior inferior ribs below her right breast and pain is reproducible with movement and deep breath. Suspect most likely musculoskeletal chest wall strain from coughing. History and presentation does not appear consistent with ACS, dissection, PE but considering her age and history, will obtain screening labs, EKG, right ribs and PA lateral chest x-ray to rule out worsening pleural effusi on, PE, worsening pneumonia. We will give a dose of oxycodone and Valium and reassess. 1100 --patient remains comfortable and in no acute distress. Labs reviewed. White blood cell count 11.94, she is taking steroids currently. She has admitted to increased sputum production. Potassium 3.4. Troponin minimally elevated at 62. D-dimer elevated at 2502. Will obtain CT chest to r/o PE. 1215 --patient reassessed and she states her pain is significantly improved and denies any pain at present. CT reviewed and notes: IMPRESSION: 1. No findings to suggest acute pulmonary embolus. 2. Findings suspicious for neoplastic disease. Spiculated lesion is seen in the right lung/upper lobe adjacent to the horizontal fissure, the the additional spiculated lesion is seen in the right lower lobe and there are subpleural patchy and linear opacities. There is also conglomerate right hilar and subcarinal adenopathy with some narrowing of the right mainstem bronchus. There is moderate right pleural effusion with associated atelectasis/airspace disease in the right lower lobe. 3. Right adrenal mass suspicious for adrenal metastasis. Findings suspicious for hepatic metastasis. 4. thoracic kyphosis. Compression deformity T9 superior endplate of T10 age indeterminate but likely old/chronic. Results discussed with patient and at bedside. states he can call patient's PCP and oncologist tomorrow to arrange for PET scan and potential biopsy. 1345 --repeat troponin negative. With no complaint of pain and two essentially unremarkable troponins, this is does not appear consistent with an ischemic etiology. Patient would like to go home. Will send home with oxycodone to go in addition to prescription. A prescription for cough medication also sent to her pharmacy. Case discussed with general surgery who recommended to place patient on surgery list for follow-up this week for reevaluation for consideration for repeat thoracentesis if needed and discussion whether she may be a candidate for a Pleurx catheter. will call PCP tomorrow for plan for outpatient PET scan and oncologist to discuss her CT findings and any oncology treatment plans going forward. Usual and customary return precautions given prior to discharge. Medical Records Medical records reviewed: Yes I reviewed the patient's medical records. Imaging Data Radiologic Study: Radiologist's impression: XR Right Ribs Exam date and time: 01/17/2022 10:22 AM Age: 76 years old Clinical indication: Cough; Right-sided; Painful respiration; Other: RT anterior inferior rib pain; Patient HX: Recent pleural effusion, R/O effusion, pneumonia, or rib FX. TECHNIQUE: Imaging protocol: XR Right ribs. Views: 2 views. COMPARISON: CR XR PORTABLE CHEST AP 01/12/2022 4:17 PM FINDINGS: Bones/joints: No definite displaced right rib fracture. Soft tissues: Normal. IMPRESSION: No definite displaced right rib fracture. XR Chest Exam date and time: 01/17/2022 10:22 AM Age: 76 years old Clinical indication: Cough; Right-sided; Painful respiration; Other: RT anterior inferior rib pain; Patient HX: Recent pleural effusion, R/O effusion, pneumonia, or rib FX. TECHNIQUE: Imaging protocol: XR of the chest. Views: 2 views. COMPARISON: CR XR PORTABLE CHEST AP 01/12/2022 4:17 PM FINDINGS: Lungs: Increasing linear opacities present in the right mid lung. Patchy airspace opacities developing in the right mid lung as well. Pleural spaces: A small right-sided pleural effusion is present. Heart/Mediastinum: Unremarkable. No cardiomegaly. Bones/joints: Unremarkable. IMPRESSION: Increasing right-sided pleural effusion as well as right mid lung atelectasis and now patchy airspace opacities. This may represent a developing pneumonia. Clinical correlation is required. CTA Chest With Contrast Exam date and time: 01/17/2022 11:14 AM Age: 76 years old Clinical indication: Other: R anterior and inferior chest pain, R/O pe TECHNIQUE: Imaging protocol: Computed tomographic angiography of the chest with contrast. 3D rendering (Not supervised by radiologist): MIP and/or 3D reconstructed images were created by the technologist. Radiation optimization: All CT scans at this facility use at least one of these dose optimization techniques: automated exposure control; mA and/or kV adjustment per patient size (includes targeted exams where dose is matched to clinical indication); or iterative reconstruction. Contrast material: OMNIPAQUE 350; Contrast volume: 80 ml; Contrast route: INTRAVENOUS (IV);? COMPARISON: CR XR RIBS RT W PA LAT CHEST 01/17/2022 10:22 AM FINDINGS: Pulmonary arteries: There is no intraluminal filling defect or intravascular thrombus to suggest acute pulmonary embolus. Aorta: The thoracic aorta is nonaneurysmal. There is scattered atherosclerotic plaque. There is no acute aortic abnormality identified. There is a common origin of the brachiocephalic left common carotid artery. Left subclavian artery origin is patent. Lungs: Emphysematous changes are seen in both lungs. There is a spiculated density noted adjacent to the horizontal fissure, suspicious for neoplasm. This abnormality measures approximately 3 cm in diameter as measured on series 5, image 250. The there are adjacent patchy and linear subpleural opacities noted anteriorly inferiorly in the right upper lobe, and in the middle lobe.? An additional spiculated nodular density is seen in the right lower lobe approximately 13 mm on series 5, image 421. There is compressive atelectasis and or airspace disease in association with right pleural effusion.. No suspicious pulmonary parenchymal mass or nodule is identified in the left lung. There is some minimal atelectasis adjacent to the fissure and dependently in the lung. There is narrowing of the right mainstem bronchus as described above. No discrete endobronchial lesion is identified. Pleural spaces:? Moderate right pleural effusion.? No evidence of pneumothorax the Heart: Unremarkable. No cardiomegaly. No pericardial effusion. Lymph nodes: There is conglomerate right hilar and subcarinal adenopathy. There are some calcifications in subcarinal adenopathy consistent with prior granulomatous disease. Right hilar adenopathy leads to some narrowing of the right mainstem bronchus. Adrenal glands: Images of the upper abdomen demonstrate a right adrenal mass. This measures roughly 4 x 3.5 cm on series 6, image 490. Findings are suspicious for adrenal metastasis. There is thickening of the left adrenal gland. The exam was not tailored to evaluate the soft tissues of the abdomen. There is some heterogeneous hypoenhancement noted within the medial segment left lobe of the liver, findings suspicious for hepatic metastasis ?Bones/joints:? There is compression deformity of T9 and of the superior endplate of T10 age indeterminate but likely chronic. No definite acute or destructive bony abnormality is identified. Soft tissues: No significant subcutaneous abnormality is identified. IMPRESSION: 1. No findings to suggest acute pulmonary embolus. 2. Findings suspicious for neoplastic disease. Spiculated lesion is seen in the right lung/upper lobe adjacent to the horizontal fissure, the the additional spiculated lesion is seen in the right lower lobe and there are subpleural patchy and linear opacities. There is also conglomerate right hilar and subcarinal adenopathy with some narrowing of the right mainstem bronchus. There is moderate right pleural effusion with associated atelectasis/airspace disease in the right lower lobe. 3. Right adrenal mass suspicious for adrenal metastasis. Findings suspicious for hepatic metastasis. 4. thoracic kyphosis. Compression deformity T9 superior endplate of T10 age indeterminate but likely old/chronic. Lab Data Lab results reviewed: Yes I reviewed the patient's lab results. Labs: Laboratory Tests Range/Units 01/17/22 01/17/22 01/17/22 09:55 09:55 09:55 WBC (4.4-10.8) 10^3/uL 11.94 H RBC (3.93-5.22) 10^6/uL 4.14 Hgb (11.2-15.7) g/dL 12.5 Hct (36.0-46.0) % 39.7 MCV (80-95) fL 95.9 H MCH (27.0-33.0) pg 30.2 MCHC (32.0-36.0) % 31.5 L RDW (11.7-14.6) % 12.2 Plt Count (130-400) 10^3/uL 192 MPV (8.0-11.0) fL 11.6 H Immature Gran % 0.5 Neutrophils % 84.5 Lymphocytes % 6.3 Monocytes % 8.1 Eosinophils % 0.3 Basophils % 0.3 Nucleated RBC % (0.0-0.3) % 0.0 Absolute Neutrophils (1.2-6.7) 10^3/uL 10.09 H Absolute Lymphocytes (1.2-3.4) 10^3/uL 0.75 L Absolute Monocytes (0.1-0.8) 10^3/uL 0.97 H Absolute Eosinophils (0.0-0.7) 10^3/uL 0.04 Absolute Basophils (0.0-0.2) 10^3/uL 0.04 D-Dimer (<500) ng/mlFEU 2502 H Sodium (136-145) mmol/L 142 Potassium (3.5-5.1) mmol/L 3.4 L Chloride (98-107) mmol/L 104 Carbon Dioxide (21.0-32.0) mmol/L 32.7 H Anion Gap (3-11) mmol/L 5.3 BUN (7-18) mg/dL 19 H Creatinine (0.55-1.02) mg/dL 0.8 Estimated GFR/1.73 m2 (mL/min/1.73m2) >= 60.00 Glucose (74-106) mg/dL 100 Calcium (8.5-10.1) mg/dL 8.6 Magnesium (1.8-2.4) mg/dL 2.0 Total Bilirubin (0.2-1.0) mg/dL 0.3 AST (15-37) U/L 25 ALT (14-59) U/L 30 Alkaline Phosphatase (46-116) U/L 88 Troponin I (<or=60) ng/L 62 H* Total Protein (6.4-8.2) g/dL 6.5 Albumin (3.4-5.0) g/dL 2.8 L Range/Units 01/17/22 13:15 WBC (4.4-10.8) 10^3/uL RBC (3.93-5.22) 10^6/uL Hgb (11.2-15.7) g/dL Hct (36.0-46.0) % MCV (80-95) fL MCH (27.0-33.0) pg MCHC (32.0-36.0) % RDW (11.7-14.6) % Plt Count (130-400) 10^3/uL MPV (8.0-11.0) fL Immature Gran % Neutrophils % Lymphocytes % Monocytes % Eosinophils % Basophils % Nucleated RBC % (0.0-0.3) % Absolute Neutrophils (1.2-6.7) 10^3/uL Absolute Lymphocytes (1.2-3.4) 10^3/uL Absolute Monocytes (0.1-0.8) 10^3/uL Absolute Eosinophils (0.0-0.7) 10^3/uL Absolute Basophils (0.0-0.2) 10^3/uL D-Dimer (<500) ng/mlFEU Sodium (136-145) mmol/L Potassium (3.5-5.1) mmol/L Chloride (98-107) mmol/L Carbon Dioxide (21.0-32.0) mmol/L Anion Gap (3-11) mmol/L BUN (7-18) mg/dL Creatinine (0.55-1.02) mg/dL Estimated GFR/1.73 m2 (mL/min/1.73m2) Glucose (74-106) mg/dL Calcium (8.5-10.1) mg/dL Magnesium (1.8-2.4) mg/dL Total Bilirubin (0.2-1.0) mg/dL AST (15-37) U/L ALT (14-59) U/L Alkaline Phosphatase (46-116) U/L Troponin I (<or=60) ng/L 56 Total Protein (6.4-8.2) g/dL Albumin (3.4-5.0) g/dL ECG Data Attestation: I personally reviewed and interpreted this ECG (s) as follows: Interpretation: Rate of 83, sinus, normal axis, no STEMI. HPI General Mode of arrival: ambulatory . Date/Time Provider Initiated Documentation: 01/17/22 09:10 . Limitations to Documentation: no limitations . Information obtained by: patient . HPI Narrative: Patient is a 76-year-old female with a history of small cell lung cancer treated in 2016, COPD chronically on 3 L nasal cannula oxygen, dementia, fibromyalgia, hypertension, hyperlipidemia who was seen here 5 days ago for increased oxygen requirements from her normal 3 L to 4 L nasal cannula oxygen and was found to have right-sided pleural effusion which was drained with thoracentesis with Dr. Hutson in the ED and she was given antibiotics for pneumonia and steroids for possible COPD exacerbation who presents for right-sided rib pain for the past 2 days. states he has not noted any increase in her shortness of breath but states she has had a junky cough and has been coughing more. She took ibuprofen at 7 AM and Tylenol at 8 AM with some relief. Patient states the pain in her right anterior inferior ribs is worse with deep breath, movement and to touch. She denies any current shortness of breath. She denies any fever, vomiting, diarrhea. Related Data Home Medications Medication Instructions Recorded Confirmed acetaminophen 500 mg tablet 500 mg PO .once daily PRN tab 02/06/20 01/17/22 albuterol sulfate 90 mcg/actuation 2 inh IH Q4H PRN 02/06/20 01/17/22 breath activated powder inhaler duloxetine 30 mg capsule,delayed 30 mg PO BID 02/06/20 01/17/22 release fluticasone furoate 100 1 inh IH DAILY 02/06/20 01/17/22 mcg-vilanterol 25 mcg/dose inhalation powder guaifenesin 600 mg tablet, 600 mg PO BID tab 02/06/20 01/17/22 extended release 12 hr ipratropium 0.5 mg-albuterol 3 mg 3 ml IH Q6H PRN 02/06/20 01/17/22 (2.5 mg base)/3 mL nebulization soln levetiracetam 500 mg tablet 250 mg PO BID tab 02/06/20 01/17/22 multivit with 1 tab PO DAILY 02/06/20 01/17/22 dddbzqmd-acyl-PD-lutein 8 mg iron-400 mcg-300 mcg tablet (Centrum Silver Women) pregabalin 200 mg capsule 400 mg PO DAILY cap 02/06/20 01/17/22 cbd cream TOPICAL 08/06/20 12/02/21 venlafaxine 37.5 mg 37.5 mg PO DAILY #90 cap 04/01/21 01/17/22 capsule,extended release 24 hr memantine 10 mg tablet 10 mg PO DAILY tab 12/02/21 01/17/22 amoxicillin 875 mg-potassium 1 tab PO BID 7 Days #14 tab 01/12/22 01/17/22 clavulanate 125 mg tablet doxycycline hyclate 100 mg tablet 100 mg PO BID 7 Days #14 tab 01/12/22 01/17/22 fluticasone furoate 100 INHALATION 01/12/22 01/12/22 mcg-vilanterol 25 mcg/dose inhalation powder (Breo Ellipta) prednisone 20 mg tablet See Rx Instructions .ROUTE 01/13/22 01/17/22 .COMPLEX #12 tab benzonatate 100 mg capsule 100 mg PO TID PRN #10 cap 01/17/22 oxycodone 5 mg tablet 5 mg PO Q6H PRN #14 tab 01/17/22 Previous Rx's Medication Instructions Recorded venlafaxine 37.5 mg 37.5 mg PO DAILY #90 cap 04/01/21 capsule,extended release 24 hr amoxicillin 875 mg-potassium 1 tab PO BID 7 Days #14 tab 01/12/22 clavulanate 125 mg tablet doxycycline hyclate 100 mg tablet 100 mg PO BID 7 Days #14 tab 01/12/22 prednisone 20 mg tablet See Rx Instructions .ROUTE 01/13/22 .COMPLEX #12 tab benzonatate 100 mg capsule 100 mg PO TID PRN #10 cap 01/17/22 oxycodone 5 mg tablet 5 mg PO Q6H PRN #14 tab 01/17/22 Allergies Allergy/AdvReac Type Severity Reaction Status Date / Time oxcarbazepine AdvReac wandering Verified 01/17/22 10:02 [From Oxtellar XR] General Stated Complaint: GenMedical ALYSSA: 3 Review of Systems All systems reviewed & are unremarkable except as noted in HPI and below Constitutional Constitutional: Denies chills, Denies excessive sweating, Denies fatigue, Denies fever(s), Denies weakness and Denies weight loss Eyes Eyes: Reports system reviewed and no additional complaints, except as documented and Denies blurry vision ENT Ears, Nose, Mouth, and Throat: Denies vertigo, Denies dizziness, Denies otalgia, Denies nasal congestion, Denies sore throat and Denies throat swelling Cardiovascular Cardiovascular: Denies chest pain, Denies syncope, Denies rapid heart rate and Denies dyspnea Respiratory Respiratory: Denies chest congestion, Denies cough, Denies pain on inspiration and Denies dyspnea Gastrointestinal Gastrointestinal: Denies abdominal pain, Denies diarrhea and Denies vomiting Genitourinary Genitourinary: Denies hematuria, Denies dysuria and Denies flank pain Musculoskeletal Musculoskeletal: Denies back pain and Denies joint swelling Comments: R anterior inferior rib pain Integumentary/Breasts Skin/Breast: Denies lesions and Denies rash Neurologic Neurologic: Denies behavioral changes, Denies confusion, Denies vertigo, Denies dizziness, Denies syncope, Denies localized weakness and Denies weakness Psychiatric Psychiatric: Denies behavioral changes, Denies confusion and Denies depression Endocrine Endocrine: Denies excessive sweating and Denies fatigue Hematologic/Lymphatic Hematologic/Lymphatic: Denies easy bruising and Denies lymphadenopathy Allergic/Immunologic Allergic/Immunologic: Denies throat swelling PFSH All Active Problems (Updated 01/17/22 @ 13:59 by Tomasa Ortega DO) Acute chest wall pain (Acute) Pleural effusion on right (Acute) Lung cancer (Chronic) Metastasis to adrenal gland (Acute) Liver metastasis (Acute) History of lung cancer (Acute) Pneumonia (Acute) Pleural effusion, right (Acute) Pneumonia (Acute) Shortness of breath (Acute) Right hemiparesis (Acute) Dementia associated with other underlying disease without behavioral disturbance (Acute) Pulmonary emphysema (Acute) Chronic respiratory insufficiency (Acute) Small cell carcinoma of right lung (Acute) Medical History (Updated 01/17/22 @ 13:59 by Tomasa Ortega DO) Anxiety Chronic pain Continuous tobacco abuse COPD (chronic obstructive pulmonary disease) Dementia AD vs FTLD Depression Fibromyalgia Gastroesophageal reflux Hyperlipidemia Hypertension Insomnia Intracranial glioma Palliative care patient [place] Physician orders for life-sustaining treatment (POLST) form indicates patient wish for [id number] status Pleural effusion on right Polio Seizure disorder, secondary focal motor Sensory peripheral neuropathy Small cell lung cancer Surgical History H/O section H/O colonoscopy H/O tubal ligation History of bronchoscopy History of tonsillectomy Family History (Updated 02/06/20 @ 07:47 by Pattie Lake RN) Mother , age 84 Stroke Hypertension Osteoporosis Rheumatoid arthritis Father , age 94 Cancer colorectal cancer Hypertension Son No problems noted. Daughter No problems noted. Social History (Updated 02/06/20 @ 07:35 by Pattie Lake RN) Smoking/Tobacco Use Status: Current every day Tobacco Type: cigarettes Smoking packs per day: 0.5 Smoking cigarettes per day: 10.0 Smoking risk assessment performed?: Yes Alcohol Intake: current Alcohol Intake frequency: 0-2 drinks per day Drug use: Never Substance use type: does not use Household members: spouse Housing: house Number of Children: 2 number of grandchildren: 5 current occupation: retired from [employer] Pets and animals: No What is your relationship status?: Panel score (0-1 are the most socially isolated patients): 1 What type of physical activity do you participate in: walking Do you feel safe at home: Yes Do you feel safe in your relationship?: Yes Additional Social history: Spends Sep thrde[place] in [place]. [place] based PCP Dr. Gomes [facility]. *[place] based medical team: PCP, Pulm, Onc & Neuro (had f/u with all providers during winter). Lives with Phuc ( in 1995). Son in [place]. Daughter in [place]; 20 miles away. Hobbies: sewing, quilting, watercolor, oil color Exam Const General: cooperative and no acute distress Orientation: alert, awake and oriented x3 HENMT Head: normal to inspection Ears: hearing grossly normal bilaterally, external ears normal and TM's normal bilaterally General nose exam: external nose normal Face and sinus: normal facial exam Mouth: oral mucosae normal Teeth and gingiva: dentition normal Throat: posterior oropharynx normal Eyes General: appearance normal, both eyes and all related structures Eyelids: eyelids normal Pupils: PERRL EOM: EOM intact bilaterally Neck Neck: normal visual inspection Lymphatic: no lymphadenopathy noted Chest Chest: normal inspection of the chest Chest/axillae images: 1. Localized area of tenderness to palpation to the right anterior inferior ribs just below right breast. There is no erythema, edema, ecchymosis, rash, lesions, crepitus or step-off. Resp Effort & Inspection: normal respiratory effort and able to speak in complete sentences Auscultation: wheezes scattered wheezes Cardio Rate: regular rate Rhythm: regular rhythm GI Inspection: normal to inspection Palpation: soft, not firm, no guarding, no hepatosplenomegaly, no masses and nontender Auscultation: normal bowel sounds Back/Spine/Pelvis Back: no CVA tenderness Skin General skin exam: no rashes or lesions noted Neuro General: patient alert and patient awake Cognition: normal cognition Speech: speech normal Gait: normal gait Motor: muscle tone normal throughout Sensory Exam: no sensory deficits noted Extrem General: normal to inspection, full ROM, capillary refill normal and no edema Psych Appearance: grossly normal Mental Status: mental status grossly normal Speech and Movement: speech and movement normal Affect: normal affect Thought Process: normal
--- NOTE | 2022-01-17 09:30 | DI.RAD_ITS ---
Exam(s) XR RIBS RT W PA LAT CHEST EXAM: XR RIBS RT W PA LAT CHEST CLINICAL HISTORY: R anterior inferior rib pain, frequent coughing TECHNIQUE: COMPARISON: CR XR PORTABLE CHEST AP from 01/12/2022 FINDINGS: PA and lateral chest and 4 additional views of the ribs were obtained. No rib fracture. Right pleur al effusion noted along with masslike areas of nodularity of right mid lung and probable right hilar enlargement. Please see accompanying chest CT angiogram, which showed findings highly suspicious for pulmonary mal ignancy. IMPRESSION: RADIATION DOSE DELIVERED: Total DLP
--- NOTE | 2022-01-17 09:30 | RT.EKG_ITS ---
APPROVED REPORT Exam: Resting ECG Reason for Exam: sob Patient Location: E HR:83 bpm ECG Measurements Heart Rate 83 AXIS NV 144 P 82 QRSd 89 QRS 28 QT 382 T 31 QTc 449 Conclusion Sinus rhythm...normal P axis, V-rate 60- 99. Sinus. Normal axis. No STEMI. I have reviewed and interpreted ECG and agree with software generated interpretation.
[2022-01-17 10:09] LABS: Abs Immature Grans 0.06 10^3/uL (0.0-0.06); Absolute Eosinophil Count 0.04 10^3/uL (0.0-0.7); Absolute Lymphocyte Count 0.75 10^3/uL (1.2-3.4); Absolute Monocyte Count 0.97 10^3/uL (0.1-0.8); Absolute Neutrophil Count 10.09 10^3/uL (1.2-6.7); Basophils % 0.3; Eosinophils % 0.3; HCT 39.7 % (36.0-46.0); HGB 12.5 g/dL (11.2-15.7); Immature Grans % 0.5; Lymphocytes % 6.3; MCH 30.2 pg (27.0-33.0); MCHC 31.5 % (32.0-36.0); MCV 95.9 fL (80-95); MPV 11.6 fL (8.0-11.0); Monocytes % 8.1; Neutrophils % 84.5; Platelet Count 192 10^3/uL (130-400); RBC 4.14 10^6/uL (3.93-5.22); RDW 12.2 % (11.7-14.6); RDW-SD 42.6 fL; WBC 11.94 10^3/uL (4.4-10.8)
[2022-01-17] MEDS: oxyCODONE 5 MG TAB PO (10:16)
[2022-01-17] MEDS: diazePAM 5 MG TAB PO (10:16)
[2022-01-17 10:19] LABS: Absolute Basophil Count 0.04 10^3/uL (0.0-0.2)
[2022-01-17 10:23] LABS: ALT 30 U/L (14-59); AST 25 U/L (15-37); Albumin 2.8 g/dL (3.4-5.0); Alkaline Phosphatase 88 U/L (46-116); Anion Gap 5.3 mmol/L (3-11); BUN 19 mg/dL (7-18); Bilirubin, Total 0.3 mg/dL (0.2-1.0); CO2 32.7 mmol/L (21.0-32.0); CREATININE 0.8 mg/dL (0.55-1.02); Calcium 8.6 mg/dL (8.5-10.1); Chloride 104 mmol/L (98-107); Glucose 100 mg/dL (74-106); Potassium 3.4 mmol/L (3.5-5.1); Sodium 142 mmol/L (136-145); Total Protein 6.5 g/dL (6.4-8.2)
[2022-01-17 10:24] LABS: Troponin I 62 ng/L (<or=60)
[2022-01-17 10:45] LABS: D-Dimer 2502 ng/mlFEU (<500)
--- NOTE | 2022-01-17 10:49 | DI.CT_ITS ---
Exam(s) CT CHEST PE CTA EXAM: CT CHEST PE CTA CLINICAL HISTORY: R anterior/inferior chest pain, r/o PE. TECHNIQUE: Imaging Protocol: Axial CT angiography was performed with multi-slice acquisition and mu lti-planar and/or 3D reconstructions. CONTRAST MATERIAL: Intravenous: Omnipaque 350 Contrast volume:structured data in ml COMPARISON: No exams were available for comparison FINDINGS: CT angiography of the chest was performed with intravenous infusion of 100 cc of Omnipaque 350. There is a large right pleural effusion period there is a spiculated mass of the right perihilar jamar on measuring about 3 cm in diameter and there is associated right hilar adenopathy and subcarinal rosita nopathy. Additional possible spiculated lesions noted in right lower lung field but difficult to scot luate due to compressive atelectasis from adjacent large pleural effusion. Left lung is grossly briana r. There are severe underlying central lobular emphysematous changes.. No evidence of pulmonary embolic disease. Thoracic aorta is of normal diameter, no thoracic aortic an eurysm or dissection, major branch vessels appear intact. No mediastinal or hilar adenopathy. Images obtained through the upper abdomen show question of a poorly defined large hypo attenuating he patic mass at the lower margins of the imaging field. This is suspicious for metastatic disease. Th ere is an intermediate attenuation right adrenal mass measuring up to 4 cm in diameter, suspicious fo r metastatic disease. Spleen grossly unremarkable. Visualized portions of the kidneys and left adre nal grossly intact. Mildly enlarged celiac node noted. IMPRESSION: Findings as described above highly suspicious for lung carcinoma, with suspicion of right adrenal and hepatic metastases. Adrenal protocol CT and abdominal and pelvic staging CT recommended for further evaluation.. RADIATION DOSE DELIVERED: 238.41mGy.cm Total DLP 238.41mGy.cm Total DLP !Error CTDIvol DATA REPOSITORY: All CT scans at this facility are submitted to the National Radiology Data Registry (NRDR) Dose Index Registry (DIR) with the [employer] (ACR). RADIATION OPTIMIZATION: All CT scans at this facility use at least one of these dose optimization te chniques: automated exposure control; mA and/or kV adjustment per patient size (includes targeted exa ms where dose is matched to clinical indication); or iterative reconstruction.
--- NOTE | 2022-01-17 10:53 | DI.VRAD_ITS ---
PROCEDURE INFORMATION: Exam: XR Right Ribs Exam date and time: 01/17/2022 10:22 AM Age: 76 years old Clinical indication: Cough; Right-sided; Painful respiration; Other: RT anterior inferior rib pain; Patient HX: Recent pleural effusion, R/O effusion, pneumonia, or rib FX. TECHNIQUE: Imaging protocol: XR Right ribs. Views: 2 views. COMPARISON: CR XR PORTABLE CHEST AP 01/12/2022 4:17 PM FINDINGS: Bones/joints: No definite displaced right rib fracture. Soft tissues: Normal. IMPRESSION: No definite displaced right rib fracture. PROCEDURE INFORMATION: Exam: XR Chest Exam date and time: 01/17/2022 10:22 AM Age: 76 years old Clinical indication: Cough; Right-sided; Painful respiration; Other: RT anterior inferior rib pain; Patient HX: Recent pleural effusion, R/O effusion, pneumonia, or rib FX. TECHNIQUE: Imaging protocol: XR of the chest. Views: 2 views. COMPARISON: CR XR PORTABLE CHEST AP 01/12/2022 4:17 PM FINDINGS: Lungs: Increasing linear opacities present in the right mid lung. Patchy airspace opacities developing in the right mid lung as well. Pleural spaces: A small right-sided pleural effusion is present. Heart/Mediastinum: Unremarkable. No cardiomegaly. Bones/joints: Unremarkable. IMPRESSION: Increasing right-sided pleural effusion as well as right mid lung atelectasis and now patchy airspace opacities. This may represent a developing pneumonia. Clinical correlation is required. Dictated and Authenticated by: Denny Hartley MD. Ordering:JESS Randolph MD
[2022-01-17] MEDS: Omnipaque 350 MG/ML 100 ML BTL IJ (11:15)
[2022-01-17] MEDS: Normal Saline Flush 10 ML SYR IVP (11:16)
--- NOTE | 2022-01-17 12:01 | DI.VRAD_ITS ---
PROCEDURE INFORMATION: Exam: CTA Chest With Contrast Exam date and time: 01/17/2022 11:14 AM Age: 76 years old Clinical indication: Other: R anterior and inferior chest pain, R/O pe TECHNIQUE: Imaging protocol: Computed tomographic angiography of the chest with contrast. 3D rendering (Not supervised by radiologist): MIP and/or 3D reconstructed images were created by the technologist. Radiation optimization: All CT scans at this facility use at least one of these dose optimization techniques: automated exposure control; mA and/or kV adjustment per patient size (includes targeted exams where dose is matched to clinical indication); or iterative reconstruction. Contrast material: OMNIPAQUE 350; Contrast volume: 80 ml; Contrast route: INTRAVENOUS (IV); COMPARISON: CR XR RIBS RT W PA LAT CHEST 01/17/2022 10:22 AM FINDINGS: Pulmonary arteries: There is no intraluminal filling defect or intravascular thrombus to suggest acute pulmonary embolus. Aorta: The thoracic aorta is nonaneurysmal. There is scattered atherosclerotic plaque. There is no acute aortic abnormality identified. There is a common origin of the brachiocephalic left common carotid artery. Left subclavian artery origin is patent. Lungs: Emphysematous changes are seen in both lungs. There is a spiculated density noted adjacent to the horizontal fissure, suspicious for neoplasm. This abnormality measures approximately 3 cm in diameter as measured on series 5, image 250. The there are adjacent patchy and linear subpleural opacities noted anteriorly inferiorly in the right upper lobe, and in the middle lobe. An additional spiculated nodular density is seen in the right lower lobe approximately 13 mm on series 5, image 421. There is compressive atelectasis and or airspace disease in association with right pleural effusion.. No suspicious pulmonary parenchymal mass or nodule is identified in the left lung. There is some minimal atelectasis adjacent to the fissure and dependently in the lung. There is narrowing of the right mainstem bronchus as described above. No discrete endobronchial lesion is identified. Pleural spaces: Moderate right pleural effusion. No evidence of pneumothorax the Heart: Unremarkable. No cardiomegaly. No pericardial effusion. Lymph nodes: There is conglomerate right hilar and subcarinal adenopathy. There are some calcifications in subcarinal adenopathy consistent with prior granulomatous disease. Right hilar adenopathy leads to some narrowing of the right mainstem bronchus. Adrenal glands: Images of the upper abdomen demonstrate a right adrenal mass. This measures roughly 4 x 3.5 cm on series 6, image 490. Findings are suspicious for adrenal metastasis. There is thickening of the left adrenal gland. The exam was not tailored to evaluate the soft tissues of the abdomen. There is some heterogeneous hypoenhancement noted within the medial segment left lobe of the liver, findings suspicious for hepatic metastasis Bones/joints: There is compression deformity of T9 and of the superior endplate of T10 age indeterminate but likely chronic. No definite acute or destructive bony abnormality is identified. Soft tissues: No significant subcutaneous abnormality is identified. IMPRESSION: 1. No findings to suggest acute pulmonary embolus. 2. Findings suspicious for neoplastic disease. Spiculated lesion is seen in the right lung/upper lobe adjacent to the horizontal fissure, the the additional spiculated lesion is seen in the right lower lobe and there are subpleural patchy and linear opacities. There is also conglomerate right hilar and subcarinal adenopathy with some narrowing of the right mainstem bronchus. There is moderate right pleural effusion with associated atelectasis/airspace disease in the right lower lobe. 3. Right adrenal mass suspicious for adrenal metastasis. Findings suspicious for hepatic metastasis. 4. thoracic kyphosis. Compression deformity T9 superior endplate of T10 age indeterminate but likely old/chronic. Dictated and Authenticated by: Santa Tucker MD. Ordering:JESS Randolph MD
[2022-01-17 13:36] LABS: Troponin I 56 ng/L (<or=60)
--- NOTE | 2022-01-17 14:17 | NUR.NOTE ---
Dr. Ortega would like the patient to be evaluated by Dr. Cazares or Dr. Bowen for right pleural effusion re-accumulation in the next 1-2 days for poss repeat thorocentesis/pleux catheter. CLB
== END 2022-01-17 14:19 | disposition home or self-care (01) ==
PROVIDERS: Emergency Provider Physician Assistant; PCP Family Medicine
DX: R07.89 Other chest pain (principal); J90 Pleural effusion, not elsewhere classified; C34.90 Malignant neoplasm of unspecified part of unspecified bronchus or lung; C79.70 Secondary malignant neoplasm of unspecified adrenal gland; C78.7 Secondary malignant neoplasm of liver and intrahepatic bile duct; R06.02 Shortness of breath; R05.9 Cough, unspecified
CPT/HCPCS: 36415; 71275; 80053; 93005; 99285; 71046; 71100; 83735; 84484; 85025; 85379; 93010; 99284; J3490

== ENCOUNTER → 2022-01-18 14:05 | Outpatient (BNVA) | payer MEDICARE, SELFPAY | PROVIDERS: PCP Family Medicine; Referring Provider Family Medicine; Visit Provider Surgery | DX: R07.89 Other chest pain (principal); J90 Pleural effusion, not elsewhere classified; C34.90 Malignant neoplasm of unspecified part of unspecified bronchus or lung; C79.70 Secondary malignant neoplasm of unspecified adrenal gland; C78.7 Secondary malignant neoplasm of liver and intrahepatic bile duct; J18.9 Pneumonia, unspecified organism; F02.80 Dementia in other diseases classified elsewhere, unspecified severity, without behavioral disturbance, psychotic disturbance, mood disturbance, and anxiety; G81.91 Hemiplegia, unspecified affecting right dominant side; R06.89 Other abnormalities of breathing; E78.5 Hyperlipidemia, unspecified; K21.9 Gastro-esophageal reflux disease without esophagitis; F03.90 Unspecified dementia, unspecified severity, without behavioral disturbance, psychotic disturbance, mood disturbance, and anxiety; J44.9 Chronic obstructive pulmonary disease, unspecified; Z72.0 Tobacco use | CPT/HCPCS: 99214 ==

== ENCOUNTER 2022-01-19 09:25 | Day surgery (SDC) | payer MEDICARE, SELFPAY ==
[2022-01-19] VITALS (7 sets, daily range): BP systolic 133–180; BP diastolic 66–83; PULSE 66–96; RESP 16–24; TEMP 36–36.7; O2SAT 84–100
--- NOTE | 2022-01-19 | DI.RAD_ITS ---
Exam(s) XR PORTABLE CHEST AP EXAM: XR PORTABLE CHEST AP CLINICAL HISTORY: s/p thoro TECHNIQUE: 2D digital imaging was performed of the chest. One image was obtained. An AP view was ob tained. COMPARISON: CR XR PORTABLE CHEST AP from 01/12/2022 CR,XR XR RIBS RT W PA LAT CHEST from 01/17/2022 FINDINGS: MEDIASTINUM: Stable prominence of the right hilum. HEART: Normal. PULMONARY VASCULATURE: Normal. LUNGS: Stable nodular opacity in the right mid lung. PLEURAL SPACE: There is blunting of the right costophrenic angle which may represent a small effusion . No left effusion. No pneumothorax. BONE:Within normal limits for the patient's age. OTHER FINDINGS:Normal. IMPRESSION: Overall, the appearance of the lungs are unchanged compared to the chest x-ray from 01/17/2022. DATA REPOSITORY: RADIATION DOSE DELIVERED:
--- NOTE | 2022-01-19 13:00 | DI.CT_ITS ---
Exam(s) CT CHEST/ABD/PEL W EXAM: CT CHEST/ABD/PEL W CLINICAL HISTORY: lung cancer w/ mets to liver TECHNIQUE: Imaging Protocol: Axial computed tomography images with coronal and sagittal reformatted images were created and reviewed CONTRAST MATERIAL: Intravenous: Omnipaque 350 Contrast volume:100 mL Oral: Yes COMPARISON: CT CT CHEST PE CTA from 01/17/2022 CR XR PORTABLE CHEST AP from 01/19/2022 FINDINGS: CHEST: Tracheobronchial tree: Patent where visualized. Pulmonary parenchyma: No consolidation or dominant measurable mass. Marked centrilobular emphysematou s changes are present. The left lung is clear apart from mild dependent atelectatic changes. There has been interval decrease in size of the right pleural effusion following thoracentesis. There has been no change in size of the 3 cm spiculated lesion in the right perihilar region associated with th e fissures. Soft tissue is seen in the right lung base adjacent to the pleural which may be pleural disease. There is again seen mediastinal and right hilar adenopathy. There is a 1 cm lymph node adj acent to the right heart. Nodular opacities are again seen within the lung particularly the right lo wer lobe. There is no pneumothorax. Visualized thyroid gland: Unremarkable. Mediastinum and Peace: Stable mediastinal and right hilar adenopathy. The esophagus is unremarkable. Pleura: No left pleural effusion or pneumothorax. Heart: The heart is not dilated. Coronary artery calcifications are present. No pericardial effusion . Pulmonary arteries: No pulmonary emboli are identified. Aorta: Thoracic aorta non-dilated. No dissection. Atherosclerosis. Lymph nodes: No axillary adenopathy. Soft tissues: Unremarkable. Bones:Within normal limits for the patient's age. Lytic lesions are seen in the lateral aspects of t he right 7th and 10th ribs suspicious for metastatic disease. ABDOMEN: Liver: Normal density. There is a 3.8 x 4.1 cm mass in the left lobe of the liver most suggestive of a metastasis. Portal, Superior Mesenteric, and Splenic Veins: Unremarkable. Gallbladder and Biliary Tract: No radiodense calculus or dilation. Pancreas: Normal density, no abnormal calcifications or inflammatory process. Spleen: Normal. Adrenals: There is a 3.9 x 3.5 cm hypoattenuating mass in the right adrenal gland. Given the finding s in the chest and liver metastatic deposit is suspected. No left adrenal mass is present. Kidneys: Normal size, contour and axis. There is a nonobstructing 2 mm stone in the lower pole of the right kidney. No masses seen. Abdominal Aorta: Abdominal portion non-dilated. Atherosclerosis. Bowel: No obstruction or bowel wall thickening. No evidence of appendicitis. There is diverticulosis of the sigmoid colon, but no evidence of acute diverticulitis. Peritoneal Cavity: No ascites, collection or mesenteric inflammatory response. No free air. Lymph Nodes: Within normal limits. Bones: There is a destructive lesion in the right ischial tuberosity which is likely metastatic. Soft Tissues: Unremarkable. PELVIS: Bladder: Symmetric distention, no gross wall thickening. Reproductive Organs: Unremarkable as visualized. Lymph Nodes: Within normal limits. Bones: Within normal limits. IMPRESSION: 1. Findings most suggestive of metastatic disease in the abdomen and pelvis which include hepatic mas s, left adrenal mass and destructive right ischial tuberosity lesion. 2. Findings again seen in the chest suggestive of lung carcinoma. Stable mediastinal and right hilar adenopathy. 3. Lytic right rib lesions consistent with osseous metastatic disease. 4. Interval decrease in size of the right pleural effusion following thoracentesis. RADIATION DOSE DELIVERED: Total DLP DATA REPOSITORY: All CT scans at this facility are submitted to the National Radiology Data Registry (NRDR) Dose Index Registry (DIR) with the [employer] (ACR). RADIATION OPTIMIZATION: All CT scans at this facility use at least one of these dose optimization te chniques: automated exposure control; mA and/or kV adjustment per patient size (includes targeted exa ms where dose is matched to clinical indication); or iterative reconstruction.
--- NOTE | 2022-01-19 13:00 | DI.CT_ITS ---
Exam(s) CT HEAD WO/W EXAM: CT HEAD WO/W CLINICAL HISTORY: recurrent lung cancer R/hx of glioma. TECHNIQUE: Imaging Protocol: Axial computed tomography images with coronal and sagittal reformatted images were created and reviewed. CONTRAST MATERIAL: Intravenous: Omnipaque 350 Contrast volume:structured data in ml mL COMPARISON: No previous for comparison. FINDINGS: Ventricles and Extra axial spaces: Normal in size and morphology for the patient's age. Hemorrhage: None. Cerebral parenchyma: No evidence of an acute infarct is seen. There are areas of decreased attenuati on in the white matter most consistent with small vessel ischemic disease. 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 Enhancement: No suspicious enhancement. [place] of [place]: Unremarkable. Midline shift: None. Brainstem/Cerebellum: Normal. Calvarium: Normal. Visualized Paranasal sinuses/Mastoids: Clear. IMPRESSION: 1. No intracranial mass or enhancing lesions. 2. Age-appropriate cerebral atrophy and small vessel ischemic disease. RADIATION DOSE DELIVERED: 3417.82 mGy.cm Total DLP 3417.82 mGy.cm Total DLP DATA REPOSITORY: All CT scans at this facility are submitted to the National Radiology Data Registry (NRDR) Dose Index Registry (DIR) with the [employer] (ACR). RADIATION OPTIMIZATION: All CT scans at this facility use at least one of these dose optimization te chniques: automated exposure control; mA and/or kV adjustment per patient size (includes targeted exa ms where dose is matched to clinical indication); or iterative reconstruction.
--- NOTE | 2022-01-19 13:07 | W.PM.OP ---
Documented by User: ROCKY Nguyen 01/19/22 13:09 Date of service: 01/19/22 Time of Service: 13:07 Operative Note Operative Note DATE OF PROCEDURE: 01/19/22 PRE-OP DIAGNOSIS: Pleural Effusion POST-OP DIAGNOSIS: same PROCEDURE: The patient is brought to the procedure room and placed in the seated position.? Ultrasound is used to localize the pocket on the right chest.? The area is marked and then prepped and draped in the usual sterile fashion using a ChloraPrep scrub solution.5 cc's? of 1% Lidocaine with epi is used to anesthetize the T10 interspace. ? The small sherry is made with a #11 blade.? The needle and catheter is then inserted over the top of the rib, aspirating as it is inserted.? The needle is then removed.? The catheter is then hooked up to the Vacutainer system and 650 cc's of avi-colored fluid is evacuated.? The catheter is removed; pressure is held. Sterile compression dressing is applied. ?Portable chest x-ray shows no pneumothorax. SURGEON: Jennifer Hutson CUSTODIAL ENGINEER: Jeny Crystal Refer to Anesthesia Record COMPLICATIONS: None Patient was transported to: same day Patient's condition: stable
[2022-01-19] MEDS: Normal Saline Flush 10 ML SYR IVP ×2 (13:29→13:31)
[2022-01-19] MEDS: oxyCODONE 5 MG TAB PO (14:04)
[2022-01-19] MEDS: Omnipaque 350 MG/ML 100 ML BTL IJ (15:40)
--- NOTE | 2022-01-19 16:02 | W.PM.DSUDISC ---
Discharge Plan Disposition Patient Disposition: HOME Condition: Stable Discharge Details Reason For Visit: HX OF LUNG CA (R) Attending Provider: Jennifer Hutson Primary Care Provider: Starr Daniel Home Meds and New Rx's Prescriptions: No Action venlafaxine 37.5 mg capsule,extended release 24hr 37.5 mg PO DAILY Qty: 90 4RF fluticasone furoate-vilanterol 100-25 mcg/dose blister with device 1 inh IH DAILY 0RF guaifenesin 600 mg tablet extended release 12hr 600 mg PO BID 0RF Centrum Silver Women 8 mg iron-400 mcg-300 mcg tablet 1 tab PO DAILY 0RF acetaminophen 500 mg tablet 500 mg PO .once daily PRN0RF ipratropium-albuterol 0.5 mg-3 mg(2.5 mg base)/3 mL solution for nebulization 3 ml IH Q6H PRN0RF duloxetine 30 mg capsule,delayed release(DR/EC) 30 mg PO BID 0RF pregabalin 200 mg capsule 400 mg PO DAILY 0RF levetiracetam 500 mg tablet 250 mg PO BID 0RF albuterol sulfate 90 mcg/actuation aerosol powdr breath activated 2 inh IH Q4H PRN (Reason: wheezing) 0RF Rx Instructions: use with spacer cbd cream 850 mg topical 0RF memantine 10 mg tablet 10 mg PO DAILY 0RF Breo Ellipta 100-25 mcg/dose blister with device INHALATION 0RF prednisone 20 mg tablet See Rx Instructions .ROUTE .COMPLEX Qty: 12 0RF Rx Instructions: Take 3 tabs daily for 2 days, then 2 tabs daily for 2 days, then 1 tab daily for 2 days oxycodone 5 mg tablet 5 mg PO Q6H PRN (Reason: pain) Qty: 14 0RF benzonatate 100 mg capsule 100 mg PO TID PRN (Reason: cough) Qty: 10 0RF Discharge Instructions Additional Instructions: -incentive spirometry 10x/ t3-4 times a day -will require lung Bx -referral sent to [facility] [place] -F/u oncology at [facility] [place] Activity:: no lifting over 10#'s x 1 week Remove Dressings/Wound Care:: 24 hours Shower/Bathe:: 24 hours Diet:: protein supplements daily Discharge Orders Discharge Orders: Discharge Order (Routine); Ordered 01/18/22 Ordered By: Jennifer Hutson
== END 2022-01-19 17:00 | disposition home or self-care (01) ==
PROVIDERS: PCP Nurse Practitioner Family; Visit Provider Surgery
PROC: (CPT 32554; principal; 2022-01-19 12:30)
DX: J90 Pleural effusion, not elsewhere classified (principal); Z85.118 Personal history of other malignant neoplasm of bronchus and lung
CPT/HCPCS: 32554; 74177; 70470; 71045; 71260; J3490